=== PATIENT | male | born 1965 | race African-American/Black ===

== ENCOUNTER 2019-03-07 20:09 | Emergency (ER) | payer SELFPAY ==
[~2019-03-07] VITALS: Ht 175.3 cm; Wt 91.0 kg
[2019-03-08 04:13] VITALS: BP 147/101
== END 2019-03-08 04:15 | disposition home or self-care (01) ==
LOC: ER 22:17
DX: G89.29 Other chronic pain (principal); M54.5 Low back pain; I10 Essential (primary) hypertension
CPT/HCPCS: 99283

== ENCOUNTER 2023-01-14 06:38 | Emergency (ER) | payer MEDICAID, OTHER ==
[~2023-01-14] VITALS: Ht 175.3 cm; Wt 86.0 kg
[2023-01-14] MEDS ORDERED: CYCLOBENZAPRINE 10MG TABLET PO ONE (09:30)
[2023-01-14] MEDS ORDERED: IBUPROFEN 400MG TABLET PO ONE (09:30)
[2023-01-14] MEDS ORDERED: CYCL10TA21 MT (10:45)
[2023-01-14] MEDS ORDERED: IBUP-2028 MT (10:45)
[2023-01-14] MEDS ORDERED: IBUPROFEN 400MG TABLET PO NR (11:15)
[2023-01-14] MEDS ORDERED: CYCLOBENZAPRINE 10MG TABLET PO NR (11:15)
[2023-01-14 11:16] VITALS: BP 183/110
== END 2023-01-14 11:18 | disposition home or self-care (01) ==
LOC: ER 06:38
DX: S13.8XXA Sprain of joints and ligaments of other parts of neck, initial encounter (principal); S09.8XXA Other specified injuries of head, initial encounter; M54.89 Other dorsalgia; I10 Essential (primary) hypertension; M25.511 Pain in right shoulder; R20.0 Anesthesia of skin; M79.601 Pain in right arm; W07.XXXA Fall from chair, initial encounter; Y93.89 Activity, other specified; Y92.89 Other specified places as the place of occurrence of the external cause
CPT/HCPCS: 99284